=== PATIENT | female | born 2000 | race Caucasian/White ===

== ENCOUNTER 2022-09-22 15:42 | Emergency (ER) | payer SELFPAY ==
[~2022-09-22] VITALS: Ht 162.6 cm; Wt 63.5 kg
[2022-09-22 16:00] VITALS: BP 106/77
--- NOTE | 2022-09-22 17:06 | NUR ---
22 yo/f presents to ED for an US to see how many weeks pt is, pt reports she has irregular periods and pcp reffered her to ER to get a better estimate on gestational age, approximated with pcp 24 weeks. pt denies any abdominal cramping, vag bleed or other symptoms. Lmp 06/13/22. PMH: denies allergies: denies
[2022-09-22 18:09] LABS: BASOPHILS % (AUTO) 0.5 % (0.0-2.0); EOSINOPHILS % (AUTO) 0.6 % (0.0-4.0); HEMATOCRIT 36.2 % (36-48); HEMOGLOBIN 12.1 g/dL (12.0-16.0); LYMPHOCYTES # (AUTO) 2.3 K/uL (2.5-16.5); LYMPHOCYTES % (AUTO) 32.6 % (20.5-51.1); MEAN CORPUSCULAR HEMOGLOBIN 30 pg (27-31); MEAN CORPUSCULAR HGB CONC 34 g/dL (33-37); MEAN CORPUSCULAR VOLUME 88.2 fL (80-94); MONOCYTES # (AUTO) 0.5 K/uL (0.8-1.0); MONOCYTES % (AUTO) 7.6 % (1.7-9.3); NEUTROPHILS # (AUTO) 4.2 K/uL (1.8-7.7); NEUTROPHILS % (AUTO) 58.7 % (42.2-75.2); PLATELET COUNT (AUTO) 374 K/uL (140-450); RED BLOOD CELL COUNT(AUTO) 4.11 MIL/uL (4.20-5.40); RED CELL DISTRIBUTION WIDTH 12.8 % (11.6-13.7); WHITE BLOOD COUNT (AUTO) 7.2 K/uL (4.8-10.8)
[2022-09-22 18:11] LABS: APPEARANCE,URINE CLEAR (CLEAR); BILIRUBIN,URINE NEGATIVE (NEGATIVE); BLOOD, URINE NEGATIVE (NEGATIVE); COLOR,URINE YELLOW (YELLOW); LEUKOCYTE ESTERASE ,URINE 1+ (NEGATIVE); NITRITE, URINE NEGATIVE (NEGATIVE); PH,URINE 7.5 (5.0-9.0); UGLUCOSE NEGATIVE (NEGATIVE)
[2022-09-22 18:41] LABS: RBC,URINE 0-5 /HPF (0-5)
--- NOTE | 2022-09-22 19:13 | NUR ---
no change in patient status. awaiting ultrasoud vss.
--- NOTE | 2022-09-22 19:20 | NUR ---
pt report to rosalee [facility]
--- NOTE | 2022-09-22 19:30 | NUR ---
Dr. Albert explained US results to patient.
[2022-09-22] MEDS ORDERED: PNV1TABL5 PO (19:40)
[2022-09-22 19:50] VITALS: BP 105/68
== END 2022-09-22 19:50 | disposition home or self-care (01) ==
LOC: MED 15:42
DX: O26.892 Other specified pregnancy related conditions, second trimester (principal); Z3A.24 24 weeks gestation of pregnancy; Z79.899 Other long term (current) drug therapy
CPT/HCPCS: 36415; 76817; 81001; 81025; 84702; 85025; 86900; 86901; 87086; 99284; Q0092

== ENCOUNTER 2022-10-04 12:11 | Emergency (ER) | payer SELFPAY ==
[~2022-10-04] VITALS: Ht 154.9 cm; Wt 65.3 kg
[~2022-10-04 12:11] MED LIST: PNV1TABL5 PO
[2022-10-04 12:16] VITALS: BP 107/61
--- NOTE | 2022-10-04 18:20 | NUR ---
Patient discharged with v/s stable. Written and verbal after care instructions given and explained. Patient alert, oriented and verbalized understanding of instructions. with to home. All questions addressed prior to discharge. ID band removed. Patient advised to follow up with PMD. . Patient educated on indication of medication including possible reaction and side effects. Opportunity to ask questions provided and answered.
== END 2022-10-04 18:20 | disposition home or self-care (01) ==
LOC: MED 12:11
DX: O03.9 Complete or unspecified spontaneous abortion without complication (principal); Z79.899 Other long term (current) drug therapy
CPT/HCPCS: 36415; 81002; 81025; 84702; 99283

== ENCOUNTER 2022-10-06 03:00 | Emergency (ER) | payer SELFPAY ==
[~2022-10-06] VITALS: Ht 157.5 cm; Wt 65.3 kg
[2022-10-06 03:05] VITALS: BP 100/77
--- NOTE | 2022-10-06 03:05 | NUR ---
TO BED AMBULATORY
--- NOTE | 2022-10-06 03:25 | NUR ---
22 Y/O F from home presents with vaginal bleeding x45min ago, pt stated a miscarriage due to stabbing pain 01/31. pt stated she was sleeping, went to use bathroom and a huge clot went into the toilet. pt stated she was seen here at [facility] x2days ago for the same reason. pt A&Ox4, skin intact, respirations even and unlabored, ambulatory. pt denies any NVD or headaches. bedside. pmh- pt denies meds-prenatals NKA
[2022-10-06 03:53] LABS: APPEARANCE,URINE CLEAR (CLEAR); BILIRUBIN,URINE NEGATIVE (NEGATIVE); BLOOD, URINE 3+ (NEGATIVE); COLOR,URINE YELLOW (YELLOW); LEUKOCYTE ESTERASE ,URINE NEGATIVE (NEGATIVE); NITRITE, URINE NEGATIVE (NEGATIVE); PH,URINE 6.5 (5.0-9.0); UGLUCOSE NEGATIVE (NEGATIVE)
[2022-10-06 03:59] LABS: RBC,URINE 0-5 /HPF (0-5)
--- NOTE | 2022-10-06 04:16 | NUR ---
pt ambulatory to restroom without assistance
--- NOTE | 2022-10-06 04:50 | NUR ---
Dr. Albert examining patient.
--- NOTE | 2022-10-06 05:00 | NUR ---
Patient discharged with v/s stable. Written and verbal after care instructions given and explained. Patient verbalized understanding. Ambulatory with steady gait. All questions addressed prior to discharge. Advised to follow up with PMD.
== END 2022-10-06 05:00 | disposition home or self-care (01) ==
LOC: MED 03:00
DX: O03.4 Incomplete spontaneous abortion without complication (principal); Z79.899 Other long term (current) drug therapy; Z3A.01 Less than 8 weeks gestation of pregnancy
CPT/HCPCS: 36415; 81001; 81025; 84702; 99284